=== PATIENT | male | born 1975 ===

== ENCOUNTER 2018-02-25 21:08 | Inpatient (IN) ==
[2018-02-25] MEDS ORDERED: BISACODYL 5 MG TABLET PO PRN (23:26)
[2018-02-25] MEDS ORDERED: ONDANSETRON 4 MG/2 ML VIAL IV PRN (23:26)
[2018-02-25] MEDS ORDERED: ALBUTEROL 2.5 MG/3 ML NEB RESP TX PRN (23:26)
[2018-02-25] MEDS ORDERED: ACETAMINOPHEN 325 MG TABLET PO PRN (23:26)
[2018-02-25] MEDS ORDERED: DOPamine 800 MG/250 ML PREMIX IV SCH (23:30)
[2018-02-25] MEDS: SODIUM CHLORIDE 0.9% 1,000 ML IV SCH (23:30)
[2018-02-26] MEDS: cefTRIAXone 1,000 MG in SYRINGE 1 EACH IV SCH ×2 (01:46→01:52)
[2018-02-26] MEDS: VANCOMYCIN INJ 2,000 MG in SODIUM CHLORIDE 0.9% 500 ML IV SCH ×3 (01:55→17:11)
[2018-02-26 06:01] LABS: Basophils % 0.3 % (0.0-0.8); Eosinophils % 0.3 % (0.00-10.9); Hematocrit 38.6 VOL% (42.0-52.0); Hemoglobin 12.5 GM/DL (14.0-18.0); Immature Granulocytes % 0.8 %; Immature Granulocytes Absolute 0.11 #; Lymphocytes % 7.3 % (21.2-54.2); Mean Corpuscular HGB Conc 32.4 GM/DL (32-36); Mean Corpuscular Hemoglobin 27 PG (27-34); Mean Corpuscular Volume 82.5 FL (87-102); Mean Platelet Volume 11.1 FL (9.6-12.0); Monocytes # 0.4 10*3/uL (0.11-0.8); Neutrophils # 11.7 10*3/uL (1.4-7.4); Neutrophils % 88.3 % (38.7-73.9); Red Blood Count 4.68 MC/CUMM (3.8-5.5); Red Cell Distribution Width 15.3 % (9.3-17.3); White Blood Count 13.2 T/CUMM (4-12)
[2018-02-26 06:02] LABS: Platelet Count 106 T/CUMM (130-400)
[2018-02-26 06:06] LABS: Osmolality,Calculated 288.4 MOS/KG (273-304); Potassium 3.6 MMOL/L (3.5-5.1)
[2018-02-26 06:23] LABS: Burr Cells Few; Platelet Estimate Decreased
[2018-02-26] MEDS: SODIUM CHLORIDE 0.9% 1,000 ML IV SCH ×4 (08:07→22:58)
[2018-02-26] MEDS: levETIRAcetam 500 MG TABLET PO SCH ×2 (09:50→20:56)
[2018-02-26] MEDS: PANTOPRAZOLE 40 MG TABLET PO SCH (09:51)
[2018-02-26] MEDS: APIXABAN 2.5 MG TABLET PO SCH ×2 (09:51→20:56)
[2018-02-26 11:24] LABS: Apearance,Urine CLEAR (Clear); Bilirubin,Urine Negative (Negative); Blood, Urine Small mg/dL (Negative); Glucose,Urine (UA) Negative (Negative); Ketones,Urine Negative (Negative); Nitrite,Urine Negative (Negative); Protein,Urine Negative; RBC,Urine 1 /HPF (0-4); Sperm,Urine Occasional /HPF (Negative); Squamous Epithelial Cell,Urine Occasional /HPF (0-10); Urine Color Yellow (Yellow); Urine Specific Gravity 1.002 (1.001-1.035); Urine Urobilinogen < 2.0 EU/DL (0.2-1.0); WBC,Urine 2 /HPF (0-6)
[2018-02-26] MEDS: DEXAMETHASONE 0.5 MG TABLET PO SCH (17:09)
[2018-02-27] MEDS: VANCOMYCIN INJ 2,000 MG in SODIUM CHLORIDE 0.9% 500 ML IV SCH ×2 (01:27→09:12)
[2018-02-27] MEDS: cefTRIAXone 1,000 MG in SYRINGE 1 EACH IV SCH (01:28)
[2018-02-27 05:56] LABS: Basophils % 0.2 % (0.0-0.8); Eosinophils # 0.2 10*3/uL (0.0-0.87); Hematocrit 37.6 VOL% (42.0-52.0); Hemoglobin 12.1 GM/DL (14.0-18.0); Immature Granulocytes % 0.8 %; Immature Granulocytes Absolute 0.05 #; Lymphocytes # 0.6 10*3/uL (1.4-4.0); Lymphocytes % 9.2 % (21.2-54.2); Mean Corpuscular HGB Conc 32.2 GM/DL (32-36); Mean Corpuscular Hemoglobin 26 PG (27-34); Mean Corpuscular Volume 81.6 FL (87-102); Mean Platelet Volume 10.3 FL (9.6-12.0); Monocytes # 0.4 10*3/uL (0.11-0.8); Monocytes % 5.5 % (1.7-12.7); Neutrophils # 5.2 10*3/uL (1.4-7.4); Neutrophils % 81.3 % (38.7-73.9); Platelet Count 206 T/CUMM (130-400); Red Blood Count 4.61 MC/CUMM (3.8-5.5); Red Cell Distribution Width 15.2 % (9.3-17.3); White Blood Count 6.4 T/CUMM (4-12)
[2018-02-27 06:08] LABS: Calcium 7.2 MG/DL (8.5-10.1); Osmolality,Calculated 281.1 MOS/KG (273-304); Potassium 3.3 MMOL/L (3.5-5.1)
[2018-02-27] MEDS: APIXABAN 2.5 MG TABLET PO SCH ×2 (08:03→20:20)
[2018-02-27] MEDS: DEXAMETHASONE 0.5 MG TABLET PO SCH (08:03)
[2018-02-27] MEDS: PANTOPRAZOLE 40 MG TABLET PO SCH (08:03)
[2018-02-27] MEDS: levETIRAcetam 500 MG TABLET PO SCH ×2 (08:03→20:20)
[2018-02-27] MEDS: SODIUM CHLORIDE 0.9% 1,000 ML IV SCH ×2 (09:12→20:19)
[2018-02-27] MEDS: CLINDAMYCIN INJ 600 MG in PREMIX 1 EACH IV SCH ×2 (11:09→18:13)
[2018-02-27] MEDS: LEVOFLOXACIN INJ 500 MG in PREMIX 1 EACH IV SCH (11:10)
[2018-02-27] MEDS: POTASSIUM CHLORIDE 20 MEQ TABLET PO SCH (11:10)
[2018-02-28] MEDS: CLINDAMYCIN INJ 600 MG in PREMIX 1 EACH IV SCH ×3 (03:09→19:48)
[2018-02-28] MEDS: SODIUM CHLORIDE 0.9% 1,000 ML IV SCH ×2 (06:25→13:06)
[2018-02-28] MEDS: DEXAMETHASONE 0.5 MG TABLET PO SCH (10:14)
[2018-02-28] MEDS: PANTOPRAZOLE 40 MG TABLET PO SCH (10:14)
[2018-02-28] MEDS: POTASSIUM CHLORIDE 20 MEQ TABLET PO SCH (10:14)
[2018-02-28] MEDS: levETIRAcetam 500 MG TABLET PO SCH ×2 (10:14→20:01)
[2018-02-28] MEDS: APIXABAN 2.5 MG TABLET PO SCH ×2 (10:15→13:06)
[2018-02-28] MEDS: LEVOFLOXACIN INJ 500 MG in PREMIX 1 EACH IV SCH (13:07)
[2018-03-01] MEDS: APIXABAN 2.5 MG TABLET PO SCH ×3 (00:18→21:00)
[2018-03-01] MEDS: CLINDAMYCIN INJ 600 MG in PREMIX 1 EACH IV SCH ×3 (03:41→23:41)
[2018-03-01 04:18] LABS: Basophils % 0.1 % (0.0-0.8); Eosinophils # 0.6 10*3/uL (0.0-0.87); Hemoglobin 12.6 GM/DL (14.0-18.0); Immature Granulocytes % 0.8 %; Immature Granulocytes Absolute 0.11 #; Lymphocytes # 0.9 10*3/uL (1.4-4.0); Lymphocytes % 6.8 % (21.2-54.2); Mean Corpuscular HGB Conc 32.3 GM/DL (32-36); Mean Corpuscular Hemoglobin 26 PG (27-34); Mean Corpuscular Volume 80.4 FL (87-102); Mean Platelet Volume 10.7 FL (9.6-12.0); Monocytes # 0.8 10*3/uL (0.11-0.8); Neutrophils # 11.4 10*3/uL (1.4-7.4); Neutrophils % 82.3 % (38.7-73.9); Platelet Count 209 T/CUMM (130-400); Red Blood Count 4.85 MC/CUMM (3.8-5.5); Red Cell Distribution Width 15.5 % (9.3-17.3); White Blood Count 13.9 T/CUMM (4-12)
[2018-03-01 04:59] LABS: Calcium 7.1 MG/DL (8.5-10.1); Osmolality,Calculated 282.3 MOS/KG (273-304); Potassium 3.3 MMOL/L (3.5-5.1)
[2018-03-01] MEDS: levETIRAcetam 500 MG TABLET PO SCH ×2 (09:41→21:01)
[2018-03-01] MEDS: PANTOPRAZOLE 40 MG TABLET PO SCH (09:41)
[2018-03-01] MEDS: POTASSIUM CHLORIDE 20 MEQ TABLET PO SCH (09:41)
[2018-03-01] MEDS: DEXAMETHASONE 0.5 MG TABLET PO SCH (09:41)
[2018-03-01] MEDS: LEVOFLOXACIN INJ 500 MG in PREMIX 1 EACH IV SCH (12:17)
[2018-03-02] MEDS: CLINDAMYCIN INJ 600 MG in PREMIX 1 EACH IV SCH ×3 (04:12→21:48)
[2018-03-02 05:39] LABS: Basophils % 0.2 % (0.0-0.8); Eosinophils # 0.9 10*3/uL (0.0-0.87); Eosinophils % 5.1 % (0.00-10.9); Hematocrit 39.8 VOL% (42.0-52.0); Hemoglobin 13.4 GM/DL (14.0-18.0); Immature Granulocytes % 1.8 %; Immature Granulocytes Absolute 0.33 #; Lymphocytes # 1.5 10*3/uL (1.4-4.0); Lymphocytes % 8.4 % (21.2-54.2); Mean Corpuscular HGB Conc 33.7 GM/DL (32-36); Mean Corpuscular Hemoglobin 26 PG (27-34); Mean Corpuscular Volume 77.7 FL (87-102); Mean Platelet Volume 10.5 FL (9.6-12.0); Monocytes # 1.1 10*3/uL (0.11-0.8); Monocytes % 6.3 % (1.7-12.7); Neutrophils # 14.1 10*3/uL (1.4-7.4); Neutrophils % 78.2 % (38.7-73.9); Platelet Count 236 T/CUMM (130-400); Red Blood Count 5.12 MC/CUMM (3.8-5.5); Red Cell Distribution Width 15.4 % (9.3-17.3)
[2018-03-02 05:57] LABS: Osmolality,Calculated 272.8 MOS/KG (273-304); Potassium 3.2 MMOL/L (3.5-5.1)
[2018-03-02] MEDS: POTASSIUM CHLORIDE 20 MEQ TABLET PO SCH ×2 (09:48→21:48)
[2018-03-02] MEDS: levETIRAcetam 500 MG TABLET PO SCH ×2 (09:48→21:48)
[2018-03-02] MEDS: DEXAMETHASONE 0.5 MG TABLET PO SCH (09:48)
[2018-03-02] MEDS: PANTOPRAZOLE 40 MG TABLET PO SCH (09:48)
[2018-03-02] MEDS: APIXABAN 2.5 MG TABLET PO SCH ×2 (09:48→21:48)
[2018-03-02] MEDS: LEVOFLOXACIN INJ 500 MG in PREMIX 1 EACH IV SCH (16:46)
[2018-03-03] MEDS: CLINDAMYCIN INJ 600 MG in PREMIX 1 EACH IV SCH ×3 (03:36→18:15)
[2018-03-03 07:10] LABS: Basophils # 0.1 10*3/uL (0.0-0.2); Basophils % 0.4 % (0.0-0.8); Eosinophils % 5.6 % (0.00-10.9); Hematocrit 44.8 VOL% (42.0-52.0); Hemoglobin 14.3 GM/DL (14.0-18.0); Immature Granulocytes % 6.2 %; Lymphocytes # 2.3 10*3/uL (1.4-4.0); Mean Corpuscular HGB Conc 31.9 GM/DL (32-36); Mean Corpuscular Hemoglobin 25 PG (27-34); Mean Corpuscular Volume 79.7 FL (87-102); Mean Platelet Volume 10.1 FL (9.6-12.0); Monocytes # 1.1 10*3/uL (0.11-0.8); Neutrophils # 12.2 10*3/uL (1.4-7.4); Neutrophils % 68.8 % (38.7-73.9); Platelet Count 290 T/CUMM (130-400); Red Blood Count 5.62 MC/CUMM (3.8-5.5); Red Cell Distribution Width 15.9 % (9.3-17.3); White Blood Count 17.8 T/CUMM (4-12)
[2018-03-03 07:34] LABS: Calcium 7.5 MG/DL (8.5-10.1); Osmolality,Calculated 273.7 MOS/KG (273-304); Potassium 3.5 MMOL/L (3.5-5.1)
[2018-03-03] MEDS: CHOLECALCIFEROL 1,000 UNIT TABLET PO SCH (08:24)
[2018-03-03] MEDS: DOCUSATE SODIUM 100 MG CAPSULE PO PRN (08:24)
[2018-03-03] MEDS: DEXAMETHASONE 0.5 MG TABLET PO SCH (08:24)
[2018-03-03] MEDS: PANTOPRAZOLE 40 MG TABLET PO SCH (08:24)
[2018-03-03] MEDS: POTASSIUM CHLORIDE 20 MEQ TABLET PO SCH ×2 (08:24→21:30)
[2018-03-03] MEDS: levETIRAcetam 500 MG TABLET PO SCH ×2 (08:24→21:29)
[2018-03-03] MEDS: APIXABAN 2.5 MG TABLET PO SCH ×2 (08:24→21:30)
[2018-03-03 10:59] LABS: Band Neutrophils 2 % (0-10); Eosinophils 10 % (0-10); Lymphocytes 14 % (20-55); Platelet Estimate Normal; Polychromasia Slight; Segmented Neutrophils 66 % (50-85); Total Cells Counted 100
[2018-03-03] MEDS ORDERED: ERGOCALCIFEROL 50,000 UNIT CAPSULE PO SCH (11:00)
[2018-03-04] MEDS: CLINDAMYCIN INJ 600 MG in PREMIX 1 EACH IV SCH ×3 (02:57→18:49)
[2018-03-04 05:53] LABS: Basophils # 0.1 10*3/uL (0.0-0.2); Basophils % 0.7 % (0.0-0.8); Eosinophils % 6.6 % (0.00-10.9); Hematocrit 40.6 VOL% (42.0-52.0); Hemoglobin 13.3 GM/DL (14.0-18.0); Immature Granulocytes % 10.4 %; Immature Granulocytes Absolute 1.53 #; Lymphocytes # 2.6 10*3/uL (1.4-4.0); Mean Corpuscular HGB Conc 32.8 GM/DL (32-36); Mean Corpuscular Hemoglobin 26 PG (27-34); Mean Corpuscular Volume 78.4 FL (87-102); Mean Platelet Volume 9.8 FL (9.6-12.0); Monocytes # 0.9 10*3/uL (0.11-0.8); Monocytes % 5.9 % (1.7-12.7); Neutrophils # 8.6 10*3/uL (1.4-7.4); Neutrophils % 58.4 % (38.7-73.9); Platelet Count 309 T/CUMM (130-400); Red Blood Count 5.18 MC/CUMM (3.8-5.5); Red Cell Distribution Width 16.1 % (9.3-17.3); White Blood Count 14.7 T/CUMM (4-12)
[2018-03-04 06:18] LABS: Calcium 7.5 MG/DL (8.5-10.1); Osmolality,Calculated 278.4 MOS/KG (273-304); Potassium 3.5 MMOL/L (3.5-5.1)
[2018-03-04] MEDS: DOCUSATE SODIUM 100 MG CAPSULE PO PRN (10:16)
[2018-03-04] MEDS: CHOLECALCIFEROL 1,000 UNIT TABLET PO SCH (10:17)
[2018-03-04] MEDS: DEXAMETHASONE 0.5 MG TABLET PO SCH (10:17)
[2018-03-04] MEDS: APIXABAN 2.5 MG TABLET PO SCH ×2 (10:17→21:06)
[2018-03-04] MEDS: PANTOPRAZOLE 40 MG TABLET PO SCH (10:17)
[2018-03-04] MEDS: POTASSIUM CHLORIDE 20 MEQ TABLET PO SCH ×2 (10:17→21:05)
[2018-03-04] MEDS: levETIRAcetam 500 MG TABLET PO SCH ×2 (10:17→21:05)
[2018-03-04 11:55] LABS: Eosinophils 6 % (0-10); Lymphocytes 19 % (20-55); Segmented Neutrophils 68 % (50-85); Total Cells Counted 100
[2018-03-04 11:56] LABS: Platelet Estimate Normal; Schistocytes Few
[2018-03-04] MEDS ORDERED: SKIN HEALING OINT (AQUAPHOR) 50 GM TUBE TOP PRN (13:59)
[2018-03-05] MEDS: CLINDAMYCIN INJ 600 MG in PREMIX 1 EACH IV SCH ×2 (02:19→11:18)
[2018-03-05 06:24] LABS: Basophils # 0.1 10*3/uL (0.0-0.2); Basophils % 0.6 % (0.0-0.8); Eosinophils # 0.9 10*3/uL (0.0-0.87); Eosinophils % 6.5 % (0.00-10.9); Hematocrit 36.7 VOL% (42.0-52.0); Immature Granulocytes % 12.1 %; Immature Granulocytes Absolute 1.72 #; Lymphocytes # 2.6 10*3/uL (1.4-4.0); Lymphocytes % 18.6 % (21.2-54.2); Mean Corpuscular HGB Conc 32.7 GM/DL (32-36); Mean Corpuscular Hemoglobin 26 PG (27-34); Mean Corpuscular Volume 80.1 FL (87-102); Mean Platelet Volume 9.1 FL (9.6-12.0); Monocytes # 0.9 10*3/uL (0.11-0.8); Monocytes % 6.4 % (1.7-12.7); Neutrophils # 7.9 10*3/uL (1.4-7.4); Neutrophils % 55.8 % (38.7-73.9); Platelet Count 318 T/CUMM (130-400); Red Blood Count 4.58 MC/CUMM (3.8-5.5); Red Cell Distribution Width 15.9 % (9.3-17.3); White Blood Count 14.2 T/CUMM (4-12)
[2018-03-05 06:45] LABS: Calcium 7.4 MG/DL (8.5-10.1); Osmolality,Calculated 275.5 MOS/KG (273-304); Potassium 3.8 MMOL/L (3.5-5.1)
[2018-03-05 06:50] LABS: Band Neutrophils 1 % (0-10); Eosinophils 9 % (0-10); Hypochromasia 1+; Lymphocytes 19 % (20-55); Platelet Estimate Adequate; Segmented Neutrophils 67 % (50-85); Total Cells Counted 100
[2018-03-05] MEDS: levETIRAcetam 500 MG TABLET PO SCH ×2 (09:06→21:13)
[2018-03-05] MEDS: PANTOPRAZOLE 40 MG TABLET PO SCH (09:07)
[2018-03-05] MEDS: POTASSIUM CHLORIDE 20 MEQ TABLET PO SCH ×2 (09:07→21:13)
[2018-03-05] MEDS: CHOLECALCIFEROL 1,000 UNIT TABLET PO SCH (09:07)
[2018-03-05] MEDS: DEXAMETHASONE 0.5 MG TABLET PO SCH (09:07)
[2018-03-05] MEDS: APIXABAN 2.5 MG TABLET PO SCH ×2 (09:07→21:13)
[2018-03-06 06:38] LABS: Basophils # 0.1 10*3/uL (0.0-0.2); Basophils % 0.8 % (0.0-0.8); Eosinophils # 0.7 10*3/uL (0.0-0.87); Eosinophils % 6.3 % (0.00-10.9); Hematocrit 37.1 VOL% (42.0-52.0); Hemoglobin 11.8 GM/DL (14.0-18.0); Immature Granulocytes % 12.1 %; Immature Granulocytes Absolute 1.42 #; Lymphocytes # 2.6 10*3/uL (1.4-4.0); Lymphocytes % 22.5 % (21.2-54.2); Mean Corpuscular HGB Conc 31.8 GM/DL (32-36); Mean Corpuscular Hemoglobin 26 PG (27-34); Mean Corpuscular Volume 81.9 FL (87-102); Mean Platelet Volume 9.2 FL (9.6-12.0); Monocytes # 0.7 10*3/uL (0.11-0.8); Monocytes % 6.2 % (1.7-12.7); NRBC # 0.02 10*3/uL; Neutrophils # 6.1 10*3/uL (1.4-7.4); Neutrophils % 52.1 % (38.7-73.9); Platelet Count 348 T/CUMM (130-400); Red Blood Count 4.53 MC/CUMM (3.8-5.5); Red Cell Distribution Width 16.1 % (9.3-17.3); White Blood Count 11.7 T/CUMM (4-12)
[2018-03-06 07:00] LABS: Band Neutrophils 3 % (0-10); Eosinophils 9 % (0-10); Lymphocytes 21 % (20-55); Segmented Neutrophils 61 % (50-85); Total Cells Counted 100
[2018-03-06 07:01] LABS: Hypochromasia 1+; Ovalocytes Slight; Platelet Estimate Adequate
[2018-03-06 07:16] LABS: Calcium 7.5 MG/DL (8.5-10.1); Potassium 3.4 MMOL/L (3.5-5.1)
[2018-03-06] MEDS: PANTOPRAZOLE 40 MG TABLET PO SCH (09:11)
[2018-03-06] MEDS: CHOLECALCIFEROL 1,000 UNIT TABLET PO SCH (09:11)
[2018-03-06] MEDS: levETIRAcetam 500 MG TABLET PO SCH (09:11)
[2018-03-06] MEDS: APIXABAN 2.5 MG TABLET PO SCH (09:11)
[2018-03-06] MEDS: DEXAMETHASONE 0.5 MG TABLET PO SCH (09:11)
[2018-03-06] MEDS: POTASSIUM CHLORIDE 20 MEQ TABLET PO SCH (09:11)
[2018-03-06 18:13] VITALS: BP 129/64
== END 2018-03-06 18:13 | DRG 463 ==
LOC: SUATTDRO 22:56 → N.ICU 22:56 → N.5E 02-26 12:28
PROVIDERS: ADMIT Family Medicine; ATTEND Internal Medicine

== ENCOUNTER 2019-06-19 21:22 | Inpatient (IN) ==
[2019-06-19] MEDS ORDERED: ONDANSETRON 4 MG/2 ML VIAL IV PRN (22:06)
[2019-06-19] MEDS ORDERED: fentaNYL 100 MCG/2 ML VIAL IV PRN (22:06)
[2019-06-19] MEDS ORDERED: SKIN HEALING OINT (AQUAPHOR) 50 GM TUBE TOP PRN (22:57)
[2019-06-19] MEDS ORDERED: PIPERACILLIN/TAZOBACTAM 4,500 MG in SODIUM CHLORIDE 0.9% 100 ML IV SCH (23:00)
[2019-06-20] MEDS: PIPERACILLIN/TAZOBACTAM 3,375 MG in SODIUM CHLORIDE 0.9% 100 ML IV SCH ×3 (01:15→16:02)
[2019-06-20] MEDS: METOCLOPRAMIDE 10 MG/2 ML VIAL IV SCH ×4 (01:17→17:33)
[2019-06-20 05:28] LABS: Basophils % 0.2 % (0.0-0.8); Eosinophils # 0.3 10*3/uL (0.0-0.87); Eosinophils % 1.9 % (0.00-10.9); Hematocrit 38.8 VOL% (42.0-52.0); Hemoglobin 12.7 GM/DL (14.0-18.0); Immature Granulocytes % 0.7 %; Lymphocytes # 1.6 10*3/uL (1.4-4.0); Lymphocytes % 11.6 % (21.2-54.2); Mean Corpuscular HGB Conc 32.7 GM/DL (32-36); Mean Corpuscular Volume 84.2 FL (87-102); Mean Platelet Volume 9.7 FL (9.6-12.0); Monocytes % 7.3 % (1.7-12.7); Neutrophils % 78.3 % (38.7-73.9); Platelet Count 231 T/CUMM (130-400); Red Blood Count 4.61 MC/CUMM (3.8-5.5); Red Cell Distribution Width 13.9 % (9.3-17.3); White Blood Count 13.5 T/CUMM (4-12)
[2019-06-20 05:32] LABS: PT Patient Result 10.7 SECS (9.6-12.2); Partial Thromboplastin Time 31.7 SECS (20.8-36.0)
[2019-06-20 06:07] LABS: Albumin 3.1 G/DL (3.4-5.0); Bilirubin,Total 1.6 MG/DL (0.2-1.0); Calcium 8.4 MG/DL (8.5-10.1); Osmolality,Calculated 279.3 MOS/KG (273-304); Total Protein 7.2 G/DL (6.4-8.3)
[2019-06-20] MEDS: DEXAMETHASONE 0.5 MG TABLET PO SCH (08:31)
[2019-06-20] MEDS: CHOLECALCIFEROL 1,000 UNIT TABLET PO SCH (08:31)
[2019-06-20] MEDS: PANTOPRAZOLE 40 MG VIAL IV SCH (08:32)
[2019-06-20] MEDS: levETIRAcetam 500 MG TABLET PO SCH ×2 (08:34→21:10)
[2019-06-21] MEDS: METOCLOPRAMIDE 10 MG/2 ML VIAL IV SCH ×5 (00:10→23:18)
[2019-06-21] MEDS: PIPERACILLIN/TAZOBACTAM 3,375 MG in SODIUM CHLORIDE 0.9% 100 ML IV SCH ×3 (01:59→17:08)
[2019-06-21] MEDS: CHOLECALCIFEROL 1,000 UNIT TABLET PO SCH (09:02)
[2019-06-21] MEDS: DEXAMETHASONE 0.5 MG TABLET PO SCH (09:02)
[2019-06-21] MEDS: PANTOPRAZOLE 40 MG VIAL IV SCH (09:03)
[2019-06-21] MEDS: levETIRAcetam 500 MG TABLET PO SCH ×2 (09:03→20:51)
[2019-06-22] MEDS: PIPERACILLIN/TAZOBACTAM 3,375 MG in SODIUM CHLORIDE 0.9% 100 ML IV SCH ×3 (00:59→16:49)
[2019-06-22] MEDS: METOCLOPRAMIDE 10 MG/2 ML VIAL IV SCH ×3 (05:29→17:42)
[2019-06-22] MEDS: CHOLECALCIFEROL 1,000 UNIT TABLET PO SCH (09:21)
[2019-06-22] MEDS: levETIRAcetam 500 MG TABLET PO SCH ×2 (09:21→21:32)
[2019-06-22] MEDS: PANTOPRAZOLE 40 MG VIAL IV SCH (09:22)
[2019-06-22] MEDS: DEXAMETHASONE 0.5 MG TABLET PO SCH (09:22)
[2019-06-23] MEDS: PIPERACILLIN/TAZOBACTAM 3,375 MG in SODIUM CHLORIDE 0.9% 100 ML IV SCH ×3 (00:52→16:22)
[2019-06-23] MEDS: METOCLOPRAMIDE 10 MG/2 ML VIAL IV SCH ×4 (00:53→17:39)
[2019-06-23 05:33] LABS: Calcium 8.1 MG/DL (8.5-10.1); Osmolality,Calculated 276.4 MOS/KG (273-304)
[2019-06-23] MEDS: PANTOPRAZOLE 40 MG VIAL IV SCH (09:18)
[2019-06-23] MEDS: levETIRAcetam 500 MG TABLET PO SCH ×2 (09:19→21:55)
[2019-06-23] MEDS: CHOLECALCIFEROL 1,000 UNIT TABLET PO SCH (09:19)
[2019-06-23] MEDS: DEXAMETHASONE 0.5 MG TABLET PO SCH (09:20)
[2019-06-24] MEDS: METOCLOPRAMIDE 10 MG/2 ML VIAL IV SCH ×4 (00:51→18:02)
[2019-06-24] MEDS: PIPERACILLIN/TAZOBACTAM 3,375 MG in SODIUM CHLORIDE 0.9% 100 ML IV SCH ×3 (00:51→18:10)
[2019-06-24 05:42] LABS: Basophils % 0.2 % (0.0-0.8); Eosinophils # 0.3 10*3/uL (0.0-0.87); Eosinophils % 2.8 % (0.00-10.9); Hematocrit 34.8 VOL% (42.0-52.0); Hemoglobin 11.2 GM/DL (14.0-18.0); Immature Granulocytes % 0.6 %; Immature Granulocytes Absolute 0.07 #; Lymphocytes # 1.8 10*3/uL (1.4-4.0); Lymphocytes % 16.7 % (21.2-54.2); Mean Corpuscular HGB Conc 32.2 GM/DL (32-36); Mean Corpuscular Volume 85.3 FL (87-102); Mean Platelet Volume 9.6 FL (9.6-12.0); Monocytes % 5.4 % (1.7-12.7); Neutrophils % 74.3 % (38.7-73.9); Platelet Count 255 T/CUMM (130-400); Red Blood Count 4.08 MC/CUMM (3.8-5.5); Red Cell Distribution Width 13.9 % (9.3-17.3)
[2019-06-24] MEDS ORDERED: INDOCYANINE GREEN 25 MG VIAL IV ONE (06:00)
[2019-06-24 07:49] LABS: Albumin 2.6 G/DL (3.4-5.0); Bilirubin,Total 0.48 MG/DL (0.2-1.0); Calcium 8.4 MG/DL (8.5-10.1); Total Protein 6.7 G/DL (6.4-8.3)
[2019-06-24 07:50] LABS: Osmolality,Calculated 280.1 MOS/KG (273-304)
[2019-06-24] MEDS: levETIRAcetam 500 MG TABLET PO SCH ×2 (09:05→22:15)
[2019-06-24] MEDS ORDERED: LIDOCAINE 1%/EPI INJ 20 ML VIAL ONE (10:16)
[2019-06-24] MEDS ORDERED: BUPIVACAINE MPF 0.25% 30 ML VIAL ONE (10:16)
[2019-06-24] MEDS ORDERED: TISSUE ADHESIVE 1 EACH APPLICATOR TOP ONE (10:16)
[2019-06-24] MEDS: LACTATED RINGERS 1,000 ML IV SCH ×2 (10:41→14:05)
[2019-06-24] MEDS ORDERED: SUGAMMADEX 200 MG/2 ML VIAL IV ONE (12:07)
[2019-06-24] MEDS ORDERED: SEVOFLURANE 1 UNIT/15 MINUTE INH ONE (12:42)
[2019-06-24] MEDS ORDERED: LIDOCAINE 2% 5 ML VIAL ONE (12:42)
[2019-06-24] MEDS ORDERED: MIDAZOLAM 2 MG/2 ML VIAL ONE (12:42)
[2019-06-24] MEDS ORDERED: PROPOFOL 200 MG/20 ML VIAL IV ONE (12:42)
[2019-06-24] MEDS ORDERED: ONDANSETRON 4 MG/2 ML VIAL ONE (12:42)
[2019-06-24] MEDS ORDERED: SUCCINYLCHOLINE 200 MG/10 ML VIAL ONE (12:42)
[2019-06-24] MEDS ORDERED: fentaNYL 100 MCG/2 ML VIAL ONE (12:42)
[2019-06-24] MEDS ORDERED: ROCURONIUM 100 MG/10 ML VIAL IV ONE (12:43)
[2019-06-24] MEDS ORDERED: DEXTROSE 10% 250 ML BAG IV PRN (15:03)
[2019-06-24] MEDS ORDERED: GLUCAGON 1 MG VIAL IM PRN (15:03)
[2019-06-24] MEDS: CHOLECALCIFEROL 1,000 UNIT TABLET PO SCH (15:28)
[2019-06-24] MEDS: DEXAMETHASONE 0.5 MG TABLET PO SCH (15:28)
[2019-06-24] MEDS: PANTOPRAZOLE 40 MG VIAL IV SCH (15:31)
[2019-06-25] MEDS: METOCLOPRAMIDE 10 MG/2 ML VIAL IV SCH ×3 (01:10→12:40)
[2019-06-25] MEDS: PIPERACILLIN/TAZOBACTAM 3,375 MG in SODIUM CHLORIDE 0.9% 100 ML IV SCH ×2 (01:12→09:50)
[2019-06-25] MEDS: DEXAMETHASONE 0.5 MG TABLET PO SCH (09:44)
[2019-06-25] MEDS: CHOLECALCIFEROL 1,000 UNIT TABLET PO SCH (09:44)
[2019-06-25] MEDS: levETIRAcetam 500 MG TABLET PO SCH (09:44)
[2019-06-25] MEDS: PANTOPRAZOLE 40 MG VIAL IV SCH (09:50)
[2019-06-25 11:32] VITALS: BP 110/58
== END 2019-06-25 14:45 | disposition home or self-care (01) | DRG 418 ==
LOC: EDUNIT# → EDBD → N.ED 21:22 → N.EDINP 22:04 → N.3E 22:42
PROVIDERS: ADMIT Surgery; ATTEND Surgery